=== PATIENT | male | born 2000 | race Caucasian/White ===

== ENCOUNTER 2024-06-26 14:41 | Emergency (ER) | payer MEDICAID ==
[~2024-06-26] VITALS: Ht 167.6 cm; Wt 58.2 kg
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
[2024-06-26 15:47] VITALS: BP 128/85; PULSE 65; RESP 16; TEMP 98.6; O2SAT 98
== END 2024-06-26 15:51 ==
LOC: ER 14:42 → EEVIPCON 14:42 → ER 15:51
DX: Z00.8 Encounter for other general examination (principal)
CPT/HCPCS: 99284